=== PATIENT | male | born 1935 | race African-American/Black ===

== ENCOUNTER 2018-08-13 19:04 | Inpatient (IN) ==
[2018-08-13] MEDS ORDERED: Morphine Inj 4 MG/ML Vial IV.PUSH ONE (21:59)
[2018-08-13 23:16] LABS: Baso % (Auto) 0.4 % (0.0-2.0); Hematocrit 45.5 % (39.0-51.0); Hemoglobin 14.8 gm/dL (13.0-17.0); Lymph # (Auto) 0.8 th/mm3 (1.0-4.8); Lymph % (Auto) 7.5 % (9.0-44.0); Mean Corpuscular HGB Conc 32.6 % (32.0-36.0); Mean Corpuscular Hemoglobin 29.7 pg (27.0-34.0); Mean Platelet Volume 11.2 fL (7.0-11.0); Mono # (Auto) 0.6 th/mm3 (0.0-0.9); Mono % (Auto) 5.2 % (0.0-8.0); Neut # (Auto) 9.6 th/mm3 (1.8-7.7); Neut % (Auto) 86.9 % (16.0-70.0); Platelet Count 141 th/mm3 (150-450); Red Cell Distribution Width 14.1 % (11.6-17.2)
--- NOTE | 2018-08-13 23:17 | ED ---
HPI General Chief complaint: Extremity Problem,Nontraumatic Stated complaint: dr giuliana/hip/leg pain Time Seen by Provider: 08/13/18 21:32 Source: patient Mode of arrival: ambulatory Limitations: no limitations History of Present Illness HPI Narrative: 82-year-old male complains of weakness in the right leg. He is unable to elevate the heel off the bed. This is 24 hours old. He has had some numbness and tingling in the right leg as well as some low back pain for the past 2-1/2 weeks. [facility] does not know the results. The MRI was done 3 days ago. He reports that since then he has developed focal weakness. No fever. No history of steroid use or immunomodulators. Patient denies history of cancer. Patient does report a history of diabetes. No fecal incontinence or overflow urinary incontinence. No perineal or perianal anesthesia. Pt urinated at approximately 8pm this evening (approx 5 hours prior to admission). Pt reports small BM several hours prior in AM. MD Complaint: focal weakness Onset (ago): hour(s) (24) Duration: constant Location: RLE Migration: none Severity: mild Quality: numbness Relieving factors: none Exacerbating factors: none Associated symptoms: other (low back pain) Related Data Home Medications Medication Instructions Recorded Confirmed clopidogrel 75 mg PO DAILY 08/13/18 08/13/18 hydrochlorothiazide 12.5 mg PO BID 08/13/18 08/13/18 losartan 100 mg PO DAILY 08/13/18 08/13/18 metoprolol tartrate 12.5 mg PO BID 08/13/18 08/13/18 spironolactone 25 mg PO BID 08/13/18 08/13/18 Allergies Allergy/AdvReac Type Severity Reaction Status Date / Time No Known Allergies Allergy Unverified 08/13/18 19:37 Review of Systems ROS: all other systems reviewed are negative [facility] Medical History Medical History Diabetes (Acute) Hypertension (Acute) Surgical history unknown (Acute) Social History Social History Substance History: No History of Abuse Smoking Status: Never smoker How Often Do You Have a Drink Containing Alcohol: Never Recent Travel in [facility] within the Last 8 Weeks: No Recent Out of Country Travel within the Last 8 Weeks: No Immunization History Tetanus Immunization: Unsure Hx Influenza Vaccine This Season: Yes Exam Narrative Exam Narrative: GENERAL: 82-year-old male well-nourished well-developed SKIN: Focused skin assessment warm/dry. HEAD: Atraumatic. Normocephalic. EYES: Pupils equal and round. No scleral icterus. No injection or drainage. ENT: No nasal bleeding or discharge. Mucous membranes pink and moist. NECK: Trachea midline. No JVD. CARDIOVASCULAR: Regular rate and rhythm. No murmur appreciated. RESPIRATORY: No accessory muscle use. Clear to auscultation. Breath sounds equal bilaterally. GASTROINTESTINAL: Abdomen soft, non-tender, nondistended. Hepatic and splenic margins not palpable. MUSCULOSKELETAL: No focal TTP along midline spine. No paraspinal TTP. NEUROLOGICAL: Right hip flexion is limited against gravity. There is no active right hip flexion against active resistance. Flexion extension at the knee normal bilaterally. Ankle flexion extension normal and equal bilaterally. Great toe flexion/extension equal bilaterally. PSYCHIATRIC: Appropriate mood and affect; insight and judgment normal. Course Initial Documented Vital Signs Temperature 98.9 F 08/13/18 19:32 Pulse Rate 112 H 08/13/18 19:32 Respiratory Rate 18 08/13/18 19:32 Blood Pressure 159/102 H 08/13/18 19:32 Pulse Oximetry 98 08/13/18 19:32 Last Documented Vital Signs Temperature 98.9 F 08/13/18 19:32 Pulse Rate 112 H 08/13/18 19:32 Respiratory Rate 18 08/13/18 19:32 Blood Pressure 159/102 H 08/13/18 19:32 Pulse Oximetry 98 08/13/18 19:32 Medical Decision Making [facility] Narrative Medical decision making narrative: d/w Dr Sarkar of neurosurgery, requests for NPO for possible operative repair tomorrow morning. 2mg decadron given iv. No evidence epidural abscess on imaging. pt reports + urination approx 4 hours prior and small BM earlier in day. call placed to Dr Sylvester for [facility]. Medical Screen Exam Complete: Yes Emergency Medical Condition: Yes Differential Diagnosis Differential Diagnosis: epidural abscess, DJD, arthritis, fracture, stenosis Lab Data Lab results reviewed: Yes I reviewed the patient's lab results. Lab results narrative: LFTs normal Result diagrams: 08/13/18 20:40 08/13/18 20:40 Lab Results 08/13/18 08/13/18 Range/Units 20:40 20:40 WBC 11.0 (4.0-11.0) th/mm3 RBC 5.00 (4.50-5.90) mil/mm3 Hgb 14.8 (13.0-17.0) gm/dL Hct 45.5 (39.0-51.0) % MCV 91.0 (80.0-100.0) fL MCH 29.7 (27.0-34.0) pg MCHC 32.6 (32.0-36.0) % RDW 14.1 (11.6-17.2) % Plt Count 141 L (150-450) th/mm3 MPV 11.2 H (7.0-11.0) fL Neut % (Auto) 86.9 H (16.0-70.0) % Lymph % (Auto) 7.5 L (9.0-44.0) % [place] % (Auto) 5.2 (0.0-8.0) % Eos % (Auto) 0.0 (0.0-4.0) % Baso % (Auto) 0.4 (0.0-2.0) % Neut # (Auto) 9.6 H (1.8-7.7) th/mm3 Lymph # (Auto) 0.8 L (1.0-4.8) th/mm3 [place] # (Auto) 0.6 (0.0-0.9) th/mm3 Eos # (Auto) 0.0 (0.0-0.4) th/mm3 Baso # (Auto) 0.0 (0.0-0.2) th/mm3 WBC Differential . Differential Comment Auto diff final Sodium 141 (136-145) meq/L Potassium 4.5 (3.5-5.1) meq/L Chloride 104 (98-107) meq/L Carbon Dioxide 21.4 (21.0-32.0) meq/L Anion Gap 16 H (5-15) meq/L BUN 27 H (7-18) mg/dL Creatinine 2.22 H (0.60-1.30) mg/dL Estimated GFR 35 L (>89) mL/min Random Glucose 183 H (74-106) mg/dL Calcium 10.0 (8.5-10.1) mg/dL Total Bilirubin 0.7 (0.2-1.0) mg/dL AST 17 (15-37) U/L ALT 16 (12-78) U/L Alkaline Phosphatase 55 (45-117) U/L Total Protein 7.9 (6.4-8.2) g/dL Albumin 3.8 (3.4-5.0) g/dL Imaging Data Attestation: I personally reviewed and interpreted this imaging study as follows : Radiologist's impression: Lumbar Spine MRI 08/13/18 21:58 CONCLUSION: 1. 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 2. Please see above for detailed description of each level. Discharge Plan Discharge Disposition Patient Disposition: 30 Still Patient Physicians Team ED Provider: Steven Smart Primary Care Provider: UNKNOWN, Rxs /Orders / Referrals /Forms Prescriptions: No Action clopidogrel 75 mg Tablet 75 mg PO DAILY RF: 0 spironolactone 25 mg Tablet 25 mg PO BID RF: 0 hydrochlorothiazide 25 mg Tablet 12.5 mg PO BID RF: 0 losartan 100 mg Tablet 100 mg PO DAILY RF: 0 metoprolol tartrate 25 mg Tablet 12.5 mg PO BID RF: 0 Status ED Status: With Doctor
[2018-08-13 23:21] LABS: Albumin 3.8 g/dL (3.4-5.0); Anion Gap 16 meq/L (5-15); Aspartate Aminotransferase 17 U/L (15-37); Blood Urea Nitrogen 27 mg/dL (7-18); Carbon Dioxide 21.4 meq/L (21.0-32.0); Chloride 104 meq/L (98-107); Glomerular Filtration Rate 35 mL/min (>89); Glucose,Random 183 mg/dL (74-106); Potassium 4.5 meq/L (3.5-5.1); Sodium 141 meq/L (136-145)
[2018-08-13 23:22] LABS: Alanine Aminotransferase 16 U/L (12-78)
[2018-08-13 23:24] LABS: Alkaline Phosphatase 55 U/L (45-117); Total Protein 7.9 g/dL (6.4-8.2)
--- NOTE | 2018-08-14 00:22 | MR ---
EXAM DATE: 08/13/2018 9:58 PM EDT AGE/SEX: 82 years / Male INDICATIONS: Weakness. Right lower leg weakness for two months. CLINICAL DATA: This is the patient's subsequent encounter. Patient reports that signs and symptoms h ave been present for 2 months and indicates a pain score of 8/10. MEDICAL/SURGICAL HISTORY: Diabetes mellitus type I. Hypertension. . Rt flank sx, Scrotum sx. COMPARISON: No prior exams available for comparison. TECHNIQUE: Multiplanar, multisequence MRI of the lumbar spine was performed without contrast. Patie nt was scanned in a sitting position; neutral, flexion, and extension scans were performed in the sa gittal plane. FINDINGS: Vertebra: The most caudal-appearing lumbar vertebra is numbered as L5. Vertebral Body heights are in tact. Mild grade 1, less than 2 mm, anterolisthesis of L4 on L5. Mild less than 2 mm grade 1 retroli sthesis of L2 on L3. Homogeneous signal. Discs: Diffuse disc desiccation with mild disc space loss at L2-3, L3-4 and L4-5. Conus: Normal level and configuration. Paraspinal Soft Tissues: No significant focal renal abnormalities in the visualized kidneys. Visualiz ed aorta is non-aneurysmal. No Retroperitoneal adenopathy. T12-L1: Mild bilateral facet arthropathy. No significant central canal or neural foraminal stenosis. L1-L2: Mild diffuse disc bulge and bilateral facet arthropathy. No significant central canal or saul ral foraminal stenosis. L2-L3: Diffuse disc bulge, ligamentum flavum hypertrophy and mild left facet arthropathy. Mild sten osis of the central canal with central canal measuring 11 mm. [id number] left and moderate to s evere far lateral right neural foraminal stenosis. L3-L4: Diffuse disc bulge with bilateral facet arthropathy. Mild effacement anterior thecal sac. Mi ld to moderate left and moderate to severe right far lateral neural foraminal stenosis. L4-L5: Diffuse disc bulge, ligamentum flavum hypertrophy and bilateral facet arthropathy. Mild to m oderate left and moderate severe right far lateral neural foraminal stenosis. L5-S1: Mild diffuse disc bulge and mild to moderate left facet arthropathy. Mild effacement of the anterior thecal sac. Mild bilateral neural foraminal stenosis. CONCLUSION: 1. 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 2. Please see above for detailed description of each level. Electronically signed by: Madhav Hill MD 08/14/2018 12:21 AM EDT
[2018-08-14] MEDS ORDERED: Bisacodyl 10 MG Supp RECTAL PRN (01:13)
[2018-08-14] MEDS ORDERED: Acetaminophen 325 MG Tablet PO PRN (01:13)
[2018-08-14] MEDS ORDERED: Dextrose 50% in Water 50 ML Vial IV.PUSH PRN (01:18)
--- NOTE | 2018-08-14 01:53 | P.HP ---
History of Present Illness Service: [facility] Primary Care Physician: UNKNOWN History of Present Illness: 82-year-old male with a past medical history significant for diabetes mellitus, hypertension, hyperlipidemia and BPH presents the emergency department for the evaluation of right hip pain and right lower extremity weakness. The patient reports that for approximately 3-1/2 weeks he has had right hip pain that has consistently worsened. He reports he has had increasing right lower extremity weakness to the point where he can no longer lift his leg off the bed times 1 week. He was advised by 1 of his physicians at the OR to come to the emergency department for further evaluation. He denies any chest pain or shortness of breath. No abdominal pain. No nausea/vomiting/diarrhea. Positive constipation. No fever/chills. No loss of bowel or bladder continence. Inpatient Certification: I certify that the inpatient services were ordered in accordance with Medicare regulations governing the order. This includes certification that hospital inpatient services are reasonable and necessary and in the case of services not specified as inpatient-only under 42 CFR 419.22(n), that they are appropriately provided as inpatient services in accordance to with the 2-midnight benchmark under 43 CFR 412.3(e) Estimated Total Length of Stay (Days): 5 Plans for Post Hospital Care: Not yet determined Review of Systems All other systems reviewed negative except as stated in [facility]PI [facility] - History History Provided By: Patient - Medical History Medical History: Medical History (Last Updated 08/14/18 @ 01:41 by Mira Sylvester MD) BPH (benign prostatic hyperplasia) Diabetes History of scrotal mass Hyperlipidemia Hypertension Surgical history unknown - Family History Family History: Family History (Last Updated 08/14/18 @ 01:41 by Mira Sylvester MD) Other Family history normal - Tobacco History Smoking Status: Never smoker - Alcohol History How Often Do You Have a Drink Containing Alcohol: Never - Substance Use History Substance History: No History of Abuse - Travel History Recent Travel in the [place] Within the Last 8 Weeks: No Recent Travel Out of the Country Within the Last 8 Weeks: No - Immunization History Tetanus Immunization: Unsure Hx Influenza Vaccine This Season: Yes Medications and Allergies Active Medications: Active Medications Acetaminophen (Tylenol) 650 mg PO Q4H PRN PRN Reason: Temp > 100.4 Bisacodyl (Dulcolax Supp) 10 mg RECTAL DAILY PRN PRN Reason: SEVERE CONSITIPATION Dextrose (D50w Vial) 50 ml IV.PUSH UNSCH PRN PRN Reason: PER HYPOGLYCEMIA PROTOCOL Glucagon (Glucagon Inj) 1 mg OTHER PRN PRN PRN Reason: for Hypoglycemia Protocol Sodium Chloride (Ns Inj) 1,000 mls @ 100 mls/hr IV.CONT .Q10H [facility] Insulin Aspart (Novolog Insulin Correctional Sugar Inj) 0 unit SQ ACHS [facility]; Protocol Losartan Potassium (Cozaar) 100 mg PO DAILY [facility] Metoprolol Tartrate (Lopressor) 12.5 mg PO BID [facility] Ondansetron HCl (Zofran Inj) 4 mg IV.PUSH Q6H PRN PRN Reason: NAUSEA OR VOMITING Sennosides (Senokot) 17.2 mg PO Q12H PRN PRN Reason: Moderate Constipation Sodium Chloride (Ns Flush) 2 ml IV.FLUSH PRN PRN PRN Reason: FLUSH AFTER USING IV ACCESS Spironolactone (Aldactone) 25 mg PO BID [facility] Allergies Allergy/AdvReac Type Severity Reaction Status Date / Time No Known Allergies Allergy Unverified 08/13/18 19:37 Home Medications Medication Instructions Recorded Confirmed Type clopidogrel 75 mg PO DAILY 08/13/18 08/13/18 History hydrochlorothiazide 12.5 mg PO BID 08/13/18 08/13/18 History losartan 100 mg PO DAILY 08/13/18 08/13/18 History metoprolol tartrate 12.5 mg PO BID 08/13/18 08/13/18 History spironolactone 25 mg PO BID 08/13/18 08/13/18 History Exam Vital signs: Vital Signs 08/13/18 19:32 Temperature 98.9 F Pulse Rate 112 H Respiratory Rate 18 Blood Pressure 159/102 H Pulse Oximetry 98 Narrative: Gen.: No acute distress Head: Normocephalic. Atraumatic. EENT: Pupils equal round and reactive to light. Nose without drainage. Airway intact. Throat without injection. Cardiovascular: Regular rate and rhythm. No murmurs, rubs or gallops. Respiratory: Lungs clear to auscultation bilaterally. No wheezes or rhonchi. Abdomen: Soft, nontender, nondistended. No peritoneal signs. Musculoskeletal: No gross deformities. No edema. Skin: No obvious rashes or erythema. Neuro: Cranial nerves II through XII grossly intact. Unable to raise right lower extremity off the bed. Results - Labs CBC & Chem 7: 08/13/18 20:40 08/13/18 20:40 Labs: Laboratory Results - last 24 hr 08/13/18 08/13/18 20:40 20:40 WBC 11.0 RBC 5.00 Hgb 14.8 Hct 45.5 MCV 91.0 MCH 29.7 MCHC 32.6 RDW 14.1 Plt Count 141 L MPV 11.2 H Neut % (Auto) 86.9 H Lymph % (Auto) 7.5 L [place] % (Auto) 5.2 Eos % (Auto) 0.0 Baso % (Auto) 0.4 Neut # (Auto) 9.6 H Lymph # (Auto) 0.8 L [place] # (Auto) 0.6 Eos # (Auto) 0.0 Baso # (Auto) 0.0 WBC Differential . Differential Comment Auto diff final Sodium 141 Potassium 4.5 Chloride 104 Carbon Dioxide 21.4 Anion Gap 16 H BUN 27 H Creatinine 2.22 H Estimated GFR 35 L Random Glucose 183 H Calcium 10.0 Total Bilirubin 0.7 AST 17 ALT 16 Alkaline Phosphatase 55 Total Protein 7.9 Albumin 3.8 - Imaging Impressions Lumbar Spine MRI 08/13/18 21:58 CONCLUSION: 1. 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 2. Please see above for detailed description of each level. Caprini VTE Risk Assessment Caprini VTE Risk Assessment: Moderate/High Risk (score >= 2) Caprini Risk Assessment Model: Point Value = 1 Point Value = 2 Point Value = 3 Point Value = 5 Age 41-60 Minor surgery BMI > 25 kg/m2 Swollen legs Varicose veins or History of unexplained or recurrent spontaneous Oral contraceptives or hormone replacement Sepsis (< 1 month) Serious lung disease, including pneumonia (< 1 month) Abnormal pulmonary function Acute myocardial infarction Congestive heart failure (< 1 month) History of inflammatory bowel disease Medical patient at bed rest Age 61-74 Arthroscopic surgery Major open surgery (> 45 min) Laparoscopic surgery (> 45 min) Malignancy Confined to bed (> 72 hours) Immobilizing plaster cast Central venous access Age >= 75 History of VTE Family history of VTE Factor V Leiden Prothrombin 31111M Lupus anticoagulant Anticardiolipin antibodies Elevated serum homocysteine Heparin-induced thrombocytopenia Other congenital or acquired thrombophilia Stroke (< 1 month) Elective arthroplasty Hip, pelvis, or leg fracture Acute spinal cord injury (< 1 month) Prophylaxis Regimen: Total Risk Factor Score Risk Level Prophylaxis Regimen 0-1 Low Early ambulation 2 Moderate Order ONE of the following: *Sequential Compression Device (SCD) *Heparin 5000 units SQ BID 3-4 Higher Order ONE of the following medications: *Heparin 5000 units SQ TID *Enoxaparin/Lovenox 40 mg SQ daily (WT < 150 kg, CrCl > 30 mL/min) *Enoxaparin/Lovenox 30 mg SQ daily (WT < 150 kg, CrCl > 10-29 mL/min) *Enoxaparin/Lovenox 30 mg SQ BID (WT < 150 kg, CrCl > 30 mL/min) AND/OR *Sequential Compression Device (SCD) 5 or more Highest Order ONE of the following medications: *Heparin 5000 units SQ TID (Preferred with Epidurals) *Enoxaparin/Lovenox 40 mg SQ daily (WT < 150 kg, CrCl > 30 mL/min) *Enoxaparin/Lovenox 30 mg SQ daily (WT < 150 kg, CrCl > 10-29 mL/min) *Enoxaparin/Lovenox 30 mg SQ BID (WT < 150 kg, CrCl > 30 mL/min) AND *Sequential Compression Device (SCD) Assessment and Plan - Plan Assessment/plan: 1. Right hip pain/weakness MRI of the lumbar spine significant for multilevel degenerative spondylosis of the lumbar spine with moderate to severe right lateral foraminal narrowing secondary to disc bulge Decadron Neurosurgery consulted, appreciate assistance 2. Diabetes mellitus Sliding scale insulin Monitor blood glucose 3. Acute kidney injury At mean 2.22, baseline unknown Likely chronic component Monitor renal function Holding home hydrochlorothiazide IV fluid hydration 4. Hypertension Continue home medications FEN NPO Electrolytes: Monitor and replete as needed NS at 100 cc/hour Holding pharmacologic anticoagulation for possible operative intervention
[2018-08-14] MEDS: Sod Chloride 0.9% Inj 1,000 ML IV.CONT SCH ×3 (02:00→23:00)
[2018-08-14] MEDS ORDERED: Chlorhexidine Gluconate 2% 1 Pack (2 Cloths) TOPICAL ONE (04:21)
[2018-08-14] MEDS ORDERED: Sodium Chlor 0.9% Inj 500 ML IV.SIG SCH (05:00)
--- NOTE | 2018-08-14 05:22 | P.CONNS ---
History of Present Illness Service: Medicine Consult date: 08/14/18 Primary Care Provider: UNKNOWN Chief Complaint: R leg weakness History of Present Illness: 82yoM former diabetic (resolved after weight loss) has had insidious onset of proximal right leg weakness over the past three weeks. He no longer feels confident walking without a walker or crutches. This involves only the right thigh (difficulty "lifting his leg") but not more distally. No significant numbness. Endorses pain in the right lateral flank but not in the back. Does not have a positive straight leg raise. MRI read as significant right L2/3 far lateral disc herniation. No clear etiology for pain (no inciting incident). 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 [facility] - History History Provided By: Patient - Medical History Medical History: Medical History (Last Updated 08/14/18 @ 01:41 by Mira Sylvester MD) BPH (benign prostatic hyperplasia) Diabetes History of scrotal mass Hyperlipidemia Hypertension Surgical history unknown - Family History Family History: Family History (Last Updated 08/14/18 @ 01:41 by Mira Sylvester MD) Other Family history normal - Tobacco History Second Hand Smoke Exposure: No Smoking Status: Never smoker - Alcohol History How Often Do You Have a Drink Containing Alcohol: Never - Substance Use History Substance History: No History of Abuse - Travel History Recent Travel in the [place] Within the Last 8 Weeks: No Recent Travel Out of the Country Within the Last 8 Weeks: No - Immunization History Tetanus Immunization: Unsure Hx Influenza Vaccine This Season: No Medications and Allergies Active Medications: Active Medications Acetaminophen (Tylenol) 650 mg PO Q4H PRN PRN Reason: Temp > 100.4 Bisacodyl (Dulcolax Supp) 10 mg RECTAL DAILY PRN PRN Reason: SEVERE CONSITIPATION Dexamethasone Sodium Phosphate (Decadron Inj) 4 mg IV.PUSH Q6HR [facility] Last Admin: 08/14/18 01:59 Dose: Not Given Dextrose (D50w Vial) 50 ml IV.PUSH UNSCH PRN PRN Reason: PER HYPOGLYCEMIA PROTOCOL Glucagon (Glucagon Inj) 1 mg OTHER PRN PRN PRN Reason: for Hypoglycemia Protocol Sodium Chloride (Ns Inj) 1,000 mls @ 100 mls/hr IV.CONT .Q10H [facility] Last Admin: 08/14/18 02:00 Dose: 100 mls/hr Lactated Ringer's (Lr 1000 Ml Inj) 1,000 mls @ 30 mls/hr IV.SIG .Q24H [facility] Stop: 08/15/18 04:29 Sodium Chloride (Ns Inj) 500 mls @ 30 mls/hr IV.SIG .Q10H [facility] Insulin Aspart (Novolog Insulin Correctional Sugar Inj) 0 unit SQ ACHS [facility]; Protocol Losartan Potassium (Cozaar) 100 mg PO DAILY [facility] Metoprolol Tartrate (Lopressor) 12.5 mg PO BID [facility] Ondansetron HCl (Zofran Inj) 4 mg IV.PUSH Q6H PRN PRN Reason: NAUSEA OR VOMITING Sennosides (Senokot) 17.2 mg PO Q12H PRN PRN Reason: Moderate Constipation Sodium Chloride (Ns Flush) 2 ml IV.FLUSH PRN PRN PRN Reason: FLUSH AFTER USING IV ACCESS Spironolactone (Aldactone) 25 mg PO BID [facility] Allergies Allergy/AdvReac Type Severity Reaction Status Date / Time No Known Allergies Allergy Unverified 08/13/18 19:37 Home Medications Medication Instructions Recorded Confirmed Type clopidogrel 75 mg PO DAILY 08/13/18 08/13/18 History hydrochlorothiazide 12.5 mg PO BID 08/13/18 08/13/18 History losartan 100 mg PO DAILY 08/13/18 08/13/18 History metoprolol tartrate 12.5 mg PO BID 08/13/18 08/13/18 History spironolactone 25 mg PO BID 08/13/18 08/13/18 History Exam Vital signs: Vital Signs 08/13/18 19:32 08/14/18 01:54 08/14/18 03:23 Temperature 98.9 F 97.7 F Pulse Rate 112 H 67 87 Respiratory Rate 18 18 18 Blood Pressure 159/102 H 176/81 H 140/79 Pulse Oximetry 98 98 100 Narrative: A&O x 3 CN II-XII intact Motor 5/5 UE and LLE. RLE: ip 2, quads 4, remainder 5 (hamstrings, and sciatic-TA/gas/EHL) Intact sensation throughout Able to bear weight with walker Negative straight leg raise to 90 degrees Results - Laboratory Findings CBC and BMP: 08/13/18 20:40 08/13/18 20:40 Abnormal lab findings: Abnormal Labs 08/13/18 08/13/18 20:40 20:40 Plt Count 141 L MPV 11.2 H Neut % (Auto) 86.9 H Lymph % (Auto) 7.5 L Neut # (Auto) 9.6 H Lymph # (Auto) 0.8 L Anion Gap 16 H BUN 27 H Creatinine 2.22 H Estimated GFR 35 L Random Glucose 183 H Assessment and Plan - Plan 82yoM with 3 week onset of insidious proximal right leg weakness without numbness, some right lateral flank pain moreso than back pain, negative Straight leg raise, acute kidney injury (Cr 2.2 without previous history), history of DM (but reduced weight from 250 to 170 lbs and an on no meds currently). The patient is not presenting like a classic far lateral disc herniation. He has no real back pain, negative SLR, is not uncomfortable. Differential includes right femoral neuropathy (would recommend EMG/NCS at 3-4 weeks after sx onset). Can occur in diabetics (diabetic amyotrophy, but usually uncontrolled). He is on *plavix* for ?reason. If contrast allowed with REKHA, consider MRI L-spine with contrast. If further imaging planned for REKHA, consider CT abdomen/pelvis. Follow-up outpatient in [facility] in 2 weeks with EMG/NCS of right leg (eval L2/L3 roots vs. femoral nerve, patient on plavix). PT to assess weakness and need for assistive devices vs. leg brace. Lastly, consider hip evaluation.
[2018-08-14 07:54] LABS: Bilirubin,Urine Negative (Negative); Clarity,Urine Clear (Clear); Color,Urine Yellow (Yellw/Straw); Glucose,Urine (UA) 500 or Greater mg/dL (Negative); Leukocyte Esterase,Urine Negative (Negative); Mucus,Urine Few /lpf (Occasional); Nitrite,Urine Negative (Negative); Specific Gravity,Urine 1.011 (1.002-1.035); Squamous Epithelial Cell,Urine <1 /hpf (0-5)
[2018-08-14 07:57] LABS: Bacteria,Urine Rare /hpf
[2018-08-14] MEDS: Insulin NovoLOG Aspart Correctional Sugar Inj SQ SCH ×4 (08:30→20:33)
[2018-08-14] MEDS: Spironolactone 25 MG Tablet PO SCH ×2 (08:30→20:33)
[2018-08-14] MEDS: Metoprolol Tartrate 25 MG Tablet PO SCH ×2 (08:31→20:33)
--- NOTE | 2018-08-14 11:26 | XR ---
EXAM DATE: 08/14/2018 12:00 AM EDT AGE/SEX: 82 years / Male INDICATIONS: Right hip pain, no known trauma CLINICAL DATA: This is the patient's initial encounter. Patient reports that signs and symptoms have been present for 2 weeks and indicates a pain score of 8/10. MEDICAL/SURGICAL HISTORY: None. None. COMPARISON: No prior exams available for comparison. FINDINGS: Bony structures are intact and in normal alignment. Joints are intact without dislocation or signifi cant arthropathy. There is minimal sclerosis of the acetabulum. Osseous density is normal. Soft tiss ues are unremarkable. No radiopaque foreign bodies seen. CONCLUSION: Minimal degenerative change. Electronically signed by: Calos Ozuna MD 08/14/2018 11:24 AM EDT
--- NOTE | 2018-08-14 12:11 | P.PN ---
Subjective Interval history: Right lower extremity weakness without any numbness August 14, 2018-patient seen and examined, only complaints of right was 20 weakness denies any significant pain or numbness. No acute event overnight. Physical Exam Vital signs: Vital Signs 08/13/18 19:32 08/14/18 01:54 08/14/18 03:23 Temperature 98.9 F 97.7 F Pulse Rate 112 H 67 87 Respiratory Rate 18 18 18 Blood Pressure 159/102 H 176/81 H 140/79 Pulse Oximetry 98 98 100 08/14/18 08:00 08/14/18 09:08 Temperature 98.6 F Pulse Rate 84 57 L Respiratory Rate 18 Blood Pressure 154/78 H Pulse Oximetry 98 Intake & Output 08/13/18 08/14/18 08/14/18 18:59 06:59 18:59 Output Total 1150 / 1150 Balance -1150 / -1150 Output: Urine 1150 / 1150 Narrative: GENERAL: NAD SKIN: Warm and dry. HEAD: Atraumatic. Normocephalic. EYES: Pupils equal and round. No scleral icterus. No injection or drainage. ENT: No nasal bleeding or discharge. Mucous membranes pink and moist. NECK: Trachea midline. No JVD. CARDIOVASCULAR: Regular rate and rhythm. RESPIRATORY: No accessory muscle use. Clear to auscultation. Breath sounds equal bilaterally. GASTROINTESTINAL: Abdomen soft, non-tender, nondistended. Hepatic and splenic margins not palpable. MUSCULOSKELETAL: Extremities without clubbing, cyanosis, or edema. No obvious deformities. NEUROLOGICAL: Awake and alert. No obvious cranial nerve deficits. Motor grossly within normal limits. Four out of 5 muscle strength in the right leg PSYCHIATRIC: Appropriate mood and affect; insight and judgment normal. - Urinary Catheter Management Indwelling Urethral Catheter Cath placed during this visit: yes Reason for continuing: Acute urinary retention Insertion date: 08/14/18 Insertion time: 07:02 Results - Labs CBC & Chem 7: 08/13/18 20:40 08/13/18 20:40 Laboratory Results - last 24 hr 08/13/18 08/13/18 08/14/18 20:40 20:40 07:00 WBC 11.0 RBC 5.00 Hgb 14.8 Hct 45.5 MCV 91.0 MCH 29.7 MCHC 32.6 RDW 14.1 Plt Count 141 L MPV 11.2 H Neut % (Auto) 86.9 H Lymph % (Auto) 7.5 L [place] % (Auto) 5.2 Eos % (Auto) 0.0 Baso % (Auto) 0.4 Neut # (Auto) 9.6 H Lymph # (Auto) 0.8 L [place] # (Auto) 0.6 Eos # (Auto) 0.0 Baso # (Auto) 0.0 WBC Differential . Differential Comment Auto diff final Sodium 141 Potassium 4.5 Chloride 104 Carbon Dioxide 21.4 Anion Gap 16 H BUN 27 H Creatinine 2.22 H Estimated GFR 35 L POC Glucose Random Glucose 183 H Calcium 10.0 Total Bilirubin 0.7 AST 17 ALT 16 Alkaline Phosphatase 55 Total Protein 7.9 Albumin 3.8 Urine Color Yellow Urine Clarity Clear Urine pH 5.0 Ur Specific [place] 1.011 Urine Protein 30 H Urine Glucose (UA) 500 or greater Urine Ketones 20 Urine Occult Blood Large H Urine Nitrate Negative Urine Bilirubin Negative Urine Urobilinogen Less than 2 Ur Leukocyte Esterase Negative Urine RBC 96 H Urine WBC 1 Ur Squamous Epith Cells <1 Urine Bacteria Rare H Urine Mucus Few H Micro UA Comment Culture not ind Ur Microscopic Review Not Reportable Urine Culture Comments Culture not ind 08/14/18 07:11 WBC RBC Hgb Hct MCV MCH MCHC RDW Plt Count MPV Neut % (Auto) Lymph % (Auto) [place] % (Auto) Eos % (Auto) Baso % (Auto) Neut # (Auto) Lymph # (Auto) [place] # (Auto) Eos # (Auto) Baso # (Auto) WBC Differential Differential Comment Sodium Potassium Chloride Carbon Dioxide Anion Gap BUN Creatinine Estimated GFR POC Glucose 188 H Random Glucose Calcium Total Bilirubin AST ALT Alkaline Phosphatase Total Protein Albumin Urine Color Urine Clarity Urine pH Ur Specific [place] Urine Protein Urine Glucose (UA) Urine Ketones Urine Occult Blood Urine Nitrate Urine Bilirubin Urine Urobilinogen Ur Leukocyte Esterase Urine RBC Urine WBC Ur Squamous Epith Cells Urine Bacteria Urine Mucus Micro UA Comment Ur Microscopic Review Urine Culture Comments - Imaging Impressions Lumbar Spine MRI 08/13/18 21:58 CONCLUSION: 1. 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 2. Please see above for detailed description of each level. Hip X-Ray 08/14/18 00:00 CONCLUSION: Minimal degenerative change. Assessment and Plan - Assessment (1) Weakness of right lower extremity Code(s): R29.898 - Other symptoms and signs involving the musculoskeletal system Status: Acute - Plan 82-year-old man with 1. Right hip pain/weakness MRI of the lumbar spine significant for multilevel degenerative spondylosis of the lumbar spine with moderate to severe right lateral foraminal narrowing secondary to disc bulge Currently on Decadron Neurosurgery consulted, appreciate assistance PT to treat and eval 2. Diabetes mellitus Sliding scale insulin Monitor blood glucose 3. Acute kidney injury Likely chronic component Monitor renal function Holding home hydrochlorothiazide Continue with IV fluid hydration 4. Hypertension Continue home medications
--- NOTE | 2018-08-14 18:19 | MB ---
cc: Mauricio Sandhu DO DATE: 08/14/2018 DATE OF CONSULTATION: 08/14/2018. HISTORY OF PRESENT ILLNESS: Mr. Elizabeth is an 82-year-old male who presented with a history of right-sided hip pain and today, went on to develop urinary retention. A Lawrence catheter was placed with some difficulty and 1200 mL of clear yellow urine drained. The patient does have a history of BPH, but denies being in retention before. There is a family history of prostate cancer on his brother's side. He denies any infections, gross hematuria, or stones. PAST MEDICAL HISTORY: Includes diabetes, hyperlipidemia, BPH, right hip pain. PAST SURGICAL HISTORY: None noted. FAMILY HISTORY: Brother with prostate cancer. SOCIAL HISTORY: Denies smoking, drinking, or using drugs. REVIEW OF SYSTEMS: Right hip pain, nocturia, moderate stream, no gross hematuria. Denies chest pain, shortness of breath. Denies abdominal pain. Denies headaches. Does have gait disturbances. Remaining review of systems were reviewed and were negative. PHYSICAL EXAMINATION: VITAL SIGNS: Temperature 98.6, heart rate 79, respiratory rate 18, 130/80. GENERAL: Well-developed, well-nourished, 82-year-old male, in no acute distress. HEENT: Normocephalic, atraumatic. Pupils equal, round, regular and reactive to light. Extraocular movements intact. NECK: Supple. HEART: Regular rate and rhythm. LUNGS: Clear. ABDOMEN: Soft, nontender, nondistended. GENITOURINARY: Uncircumcised phallus. Testes are descended. Lawrence catheter is in place, draining clear urine. EXTREMITIES: Show no cyanosis, clubbing, or edema. NEUROLOGIC: Cranial nerves 2-12 are intact. LABORATORY DATA: White count 11.0, hemoglobin 14.8, hematocrit 45.5, platelet count 141. Sodium 141, potassium 4.5, chloride 104, CO2 21.4, BUN of 27, creatinine 2.2, glucose of 188. Urinalysis shows large blood, leukocyte esterase is negative, less than 1 white cell and 96 red cells. ASSESSMENT: 1. An 82-year-old male admitted with right-sided hip pain with difficulty ambulating, was found to be in urinary retention, with history of benign prostatic hypertrophy. Recommend starting Flomax 0.4 mg p.o. at bedtime. 2. Treat constipation. 3. Wean narcotics as appropriate. 4. PT evaluation for ambulation. PLAN: Would recommend voiding trial in the next 3-4 days. The patient is discharged for this. He can follow up in the clinic, but will need to be discharged on Flomax 0.4 mg p.o. at bedtime. Thank you for the consult and allowing us to participate in the care of your patient. DO TRAVIS Colvin/marisol , 04:50 PM , 04:59 PM
[2018-08-15 04:52] LABS: Baso % (Auto) 0.2 % (0.0-2.0); Hematocrit 36.8 % (39.0-51.0); Hemoglobin 12.4 gm/dL (13.0-17.0); Lymph # (Auto) 0.7 th/mm3 (1.0-4.8); Lymph % (Auto) 6.7 % (9.0-44.0); Mean Corpuscular HGB Conc 33.7 % (32.0-36.0); Mean Corpuscular Hemoglobin 30.1 pg (27.0-34.0); Mean Corpuscular Volume 89.2 fL (80.0-100.0); Mono # (Auto) 0.5 th/mm3 (0.0-0.9); Mono % (Auto) 4.7 % (0.0-8.0); Neut # (Auto) 8.8 th/mm3 (1.8-7.7); Neut % (Auto) 88.4 % (16.0-70.0); Platelet Count 128 th/mm3 (150-450); Red Blood Count 4.12 mil/mm3 (4.50-5.90); White Blood Count 9.9 th/mm3 (4.0-11.0)
[2018-08-15 05:19] LABS: Calcium 8.5 mg/dL (8.5-10.1); Carbon Dioxide 25.2 meq/L (21.0-32.0); Potassium 4.7 meq/L (3.5-5.1)
[2018-08-15] MEDS: Insulin NovoLOG Aspart Correctional Sugar Inj SQ SCH ×4 (08:00→20:49)
--- NOTE | 2018-08-15 08:13 | P.CONOP ---
[facility] Orthopedics Consult Note - [facility] Consult date: 08/14/18 Consult reason: other (right leg weakness) Chief complaint: R Leg Weakness Narrative: 82 year old male here for evaluation of right leg weakness and lateral hip pain which began about 3 weeks ago. He denies any trauma or inciting event. He states he is unable to lift his leg straight of the bed on the right side and has started to need assistive devices to walk. He locates his pain to the lateral hip and flank. Denies any groin pain. He does not have pain radiating down the leg or numbness. No history of prior injury or issues with this leg. Review of Systems All other systems reviewed negative except as stated in HPI Musculoskeletal: Reports abnormal walking, Reports joint pain, Reports muscle weakness, Denies back pain PMFSH - History History Provided By: Patient - Medical History Medical History: Medical History (Last Reviewed 08/15/18 @ 08:06 by Emilee Isaacs MD) BPH (benign prostatic hyperplasia) Diabetes History of scrotal mass Hyperlipidemia Hypertension Surgical history unknown - Family History Family History: Family History (Last Reviewed 08/15/18 @ 08:06 by Emilee Isaacs MD) Other Family history normal - Tobacco History Second Hand Smoke Exposure: No Smoking Status: Never smoker - Alcohol History How Often Do You Have a Drink Containing Alcohol: Never - Substance Use History Substance History: No History of Abuse - Travel History Recent Travel in the [place] Within the Last 8 Weeks: No Recent Travel Out of the Country Within the Last 8 Weeks: No - Immunization History Tetanus Immunization: Unsure Hx Influenza Vaccine This Season: No Medications and Allergies Active Medications: Active Medications Acetaminophen (Tylenol) 650 mg PO Q4H PRN PRN Reason: Temp > 100.4 Bisacodyl (Dulcolax Supp) 10 mg RECTAL DAILY PRN PRN Reason: SEVERE CONSITIPATION Dexamethasone Sodium Phosphate (Decadron Inj) 4 mg IV.PUSH Q6HR [facility] Last Admin: 08/15/18 05:07 Dose: 4 mg Dextrose (D50w Vial) 50 ml IV.PUSH UNSCH PRN PRN Reason: PER HYPOGLYCEMIA PROTOCOL Glucagon (Glucagon Inj) 1 mg OTHER PRN PRN PRN Reason: for Hypoglycemia Protocol Sodium Chloride (Ns Inj) 1,000 mls @ 100 mls/hr IV.CONT .Q10H [facility] Last Admin: 08/14/18 23:00 Dose: 100 mls/hr Sodium Chloride (Ns Inj) 500 mls @ 30 mls/hr IV.SIG .Q10H [facility] Last Admin: 08/14/18 07:39 Dose: Not Given Insulin Aspart (Novolog Insulin Correctional Sugar Inj) 0 unit SQ ACHS [facility]; Protocol Last Admin: 08/14/18 20:33 Dose: 3 unit Losartan Potassium (Cozaar) 100 mg PO DAILY [facility] Last Admin: 08/14/18 08:31 Dose: 100 mg Metoprolol Tartrate (Lopressor) 12.5 mg PO BID [facility] Last Admin: 08/14/18 20:33 Dose: 12.5 mg Ondansetron HCl (Zofran Inj) 4 mg IV.PUSH Q6H PRN PRN Reason: NAUSEA OR VOMITING Sennosides (Senokot) 17.2 mg PO Q12H PRN PRN Reason: Moderate Constipation Sodium Chloride (Ns Flush) 2 ml IV.FLUSH PRN PRN PRN Reason: FLUSH AFTER USING IV ACCESS Spironolactone (Aldactone) 25 mg PO BID [facility] Last Admin: 08/14/18 20:33 Dose: 25 mg Tamsulosin HCl (Flomax) 0.4 mg PO DAILY [facility] Last Admin: 08/14/18 17:20 Dose: 0.4 mg Allergies Allergy/AdvReac Type Severity Reaction Status Date / Time No Known Allergies Allergy Unverified 08/13/18 19:37 Home Medications Medication Instructions Recorded Confirmed Type clopidogrel 75 mg PO DAILY 08/13/18 08/13/18 History hydrochlorothiazide 12.5 mg PO BID 08/13/18 08/13/18 History losartan 100 mg PO DAILY 08/13/18 08/13/18 History metoprolol tartrate 12.5 mg PO BID 08/13/18 08/13/18 History spironolactone 25 mg PO BID 08/13/18 08/13/18 History metformin 1,000 mg PO BID 08/14/18 08/14/18 History Exam Vital signs: Vital Signs 08/14/18 09:08 08/14/18 12:00 08/14/18 16:00 Temperature 97.4 F L Pulse Rate 57 L 79 93 H Respiratory Rate 18 18 Blood Pressure 138/80 146/69 H Pulse Oximetry 97 93 L 08/14/18 20:00 08/15/18 00:00 08/15/18 04:00 Temperature 98.9 F 98.5 F 98.1 F Pulse Rate 74 68 52 L Respiratory Rate 17 17 17 Blood Pressure 142/65 H 129/69 144/69 H Pulse Oximetry 98 97 96 Intake & Output 08/14/18 08/15/18 08/15/18 18:59 06:59 18:59 Intake Total 1150 / 1150 1000 / 1000 Output Total 2049 1750 / 175 Balance -900 / -900 -750 / -750 Intake: IV 500 / 500 1000 / 1000 NS Inj 1,000 ML @ 100 mls/hr IV 500 / 500 1000 / 1000 .CONT .Q10H [facility] Rx#:[id number] Oral 650 / 650 Output: Urine 2049 - Constitutional no acute distress - Routine HEENT Exam Head: Present: normocephalic, atraumatic - Routine Neck Exam Present: supple - Routine Cardiovascular Exam Present: RRR - Routine Extremities Exam Comments: Right lower extremity exam shows a non irritable hip with negative log roll and normal nonpainful range of motion. He is not point tender. He does appear to have some quadriceps atrophy compared to the right. Muscle strength testing shows 2/5 iliopsoas and 4/5 quadriceps strength with 5/5 strength distally. Negative straight leg raise and normal sensation. Palpable DP pulse. Results - Labs Result Diagrams: 08/15/18 04:03 08/15/18 04:03 Labs: Laboratory Results - last 24 hr 08/14/18 08/14/18 08/14/18 12:12 16:59 20:30 WBC RBC Hgb Hct MCV MCH MCHC RDW Plt Count MPV Neut % (Auto) Lymph % (Auto) [place] % (Auto) Eos % (Auto) Baso % (Auto) Neut # (Auto) Lymph # (Auto) [place] # (Auto) Eos # (Auto) Baso # (Auto) WBC Differential Differential Comment Sodium Potassium Chloride Carbon Dioxide Anion Gap BUN Creatinine Estimated GFR POC Glucose 158 H 215 H 227 H Random Glucose Calcium 08/15/18 08/15/18 04:03 04:03 WBC 9.9 RBC 4.12 L Hgb 12.4 L D Hct 36.8 L MCV 89.2 MCH 30.1 MCHC 33.7 RDW 14.0 Plt Count 128 L MPV 11.0 Neut % (Auto) 88.4 H Lymph % (Auto) 6.7 L [place] % (Auto) 4.7 Eos % (Auto) 0.0 Baso % (Auto) 0.2 Neut # (Auto) 8.8 H Lymph # (Auto) 0.7 L [place] # (Auto) 0.5 Eos # (Auto) 0.0 Baso # (Auto) 0.0 WBC Differential . Differential Comment Auto diff final Sodium 144 Potassium 4.7 Chloride 109 H Carbon Dioxide 25.2 Anion Gap 10 BUN 34 H Creatinine 1.77 H Estimated GFR 45 L POC Glucose Random Glucose 168 H Calcium 8.5 D - Diagnostic results Imaging: Impressions Hip X-Ray 08/14/18 00:00 CONCLUSION: Minimal degenerative change. Hip x-ray: report reviewed, image reviewed (No acute findings) Assessment and Plan - Problem List (1) Weakness of right lower extremity Code(s): R29.898 - Other symptoms and signs involving the musculoskeletal system Status: Acute - Assessment and Plan 82 year old male with progressive right leg weakness primarily involving the hip flexors and less so his quadriceps. His hip joint itself examines normally. He does have some known degenerative changes and compression in the lumbar spine which may be contributing to this, and has been seen by neurosurgery already. I do not think I have anything additional to offer at this time. I agree with physical therapy for gait evaluation.
[2018-08-15] MEDS: Spironolactone 25 MG Tablet PO SCH ×2 (08:35→20:49)
[2018-08-15] MEDS: Metoprolol Tartrate 25 MG Tablet PO SCH ×2 (08:35→20:49)
[2018-08-15] MEDS: Sod Chloride 0.9% Inj 1,000 ML IV.CONT SCH ×2 (08:41→19:30)
[2018-08-15] MEDS ORDERED: Magnesium Citrate Liq 300 ML Bottle PO ONE (11:43)
--- NOTE | 2018-08-15 11:50 | P.PN ---
Subjective Interval history: Right lower extremity weakness without any numbness August 14, 2018-patient seen and examined, only complaints of right was 20 weakness denies any significant pain or numbness. No acute event overnight. August 15, 2018-patient seen and examined, still with right lower extremity weakness, constipation times 3 days. Was seen by urology this morning. Physical Exam Vital signs: Vital Signs 08/14/18 12:00 08/14/18 16:00 08/14/18 20:00 Temperature 97.4 F L 98.9 F Pulse Rate 79 93 H 74 Respiratory Rate 18 18 17 Blood Pressure 138/80 146/69 H 142/65 H Pulse Oximetry 97 93 L 98 08/15/18 00:00 08/15/18 04:00 08/15/18 08:00 Temperature 98.5 F 98.1 F 97.6 F Pulse Rate 68 52 L 71 Respiratory Rate 17 17 16 Blood Pressure 129/69 144/69 H 140/69 Pulse Oximetry 97 96 98 Intake & Output 08/14/18 08/15/18 08/15/18 18:59 06:59 18:59 Intake Total 1150 / 1150 1000 / 1000 1000 / 1000 Output Total 2049 1750 / 1750 Balance -900 / -900 -750 / -750 1000 / 1000 Intake: IV 500 / 500 1000 / 1000 1000 / 1000 NS Inj 1,000 ML @ 100 mls/hr IV 500 / 500 1000 / 1000 1000 / 1000 .CONT .Q10H [facility] Rx#:[id number] Oral 650 / 650 Output: Urine 2049 1750 / 1750 Narrative: GENERAL: NAD SKIN: Warm and dry. HEAD: Atraumatic. Normocephalic. EYES: Pupils equal and round. No scleral icterus. No injection or drainage. ENT: No nasal bleeding or discharge. Mucous membranes pink and moist. NECK: Trachea midline. No JVD. CARDIOVASCULAR: Regular rate and rhythm. RESPIRATORY: No accessory muscle use. Clear to auscultation. Breath sounds equal bilaterally. GASTROINTESTINAL: Abdomen soft, non-tender, nondistended. Hepatic and splenic margins not palpable. MUSCULOSKELETAL: Extremities without clubbing, cyanosis, or edema. No obvious deformities. NEUROLOGICAL: Awake and alert. No obvious cranial nerve deficits. Motor grossly within normal limits. Four out of 5 muscle strength in the right leg PSYCHIATRIC: Appropriate mood and affect; insight and judgment normal. - Urinary Catheter Management Indwelling Urethral Catheter Cath placed during this visit: yes Reason for continuing: Acute urinary retention Insertion date: 08/14/18 Insertion time: 07:02 Results - Labs CBC & Chem 7: 08/15/18 04:03 08/15/18 04:03 Laboratory Results - last 24 hr 08/14/18 08/14/18 08/14/18 12:12 16:59 20:30 WBC RBC Hgb Hct MCV MCH MCHC RDW Plt Count MPV Neut % (Auto) Lymph % (Auto) [place] % (Auto) Eos % (Auto) Baso % (Auto) Neut # (Auto) Lymph # (Auto) [place] # (Auto) Eos # (Auto) Baso # (Auto) WBC Differential Differential Comment Sodium Potassium Chloride Carbon Dioxide Anion Gap BUN Creatinine Estimated GFR POC Glucose 158 H 215 H 227 H Random Glucose Calcium 08/15/18 08/15/18 08/15/18 04:03 04:03 08:39 WBC 9.9 RBC 4.12 L Hgb 12.4 L D Hct 36.8 L MCV 89.2 MCH 30.1 MCHC 33.7 RDW 14.0 Plt Count 128 L MPV 11.0 Neut % (Auto) 88.4 H Lymph % (Auto) 6.7 L [place] % (Auto) 4.7 Eos % (Auto) 0.0 Baso % (Auto) 0.2 Neut # (Auto) 8.8 H Lymph # (Auto) 0.7 L [place] # (Auto) 0.5 Eos # (Auto) 0.0 Baso # (Auto) 0.0 WBC Differential . Differential Comment Auto diff final Sodium 144 Potassium 4.7 Chloride 109 H Carbon Dioxide 25.2 Anion Gap 10 BUN 34 H Creatinine 1.77 H Estimated GFR 45 L POC Glucose 141 H Random Glucose 168 H Calcium 8.5 D Assessment and Plan - Assessment (1) Weakness of right lower extremity Code(s): R29.898 - Other symptoms and signs involving the musculoskeletal system Status: Acute - Plan 82-year-old man with 1. Right hip pain/weakness MRI of the lumbar spine significant for multilevel degenerative spondylosis of the lumbar spine with moderate to severe right lateral foraminal narrowing secondary to disc bulge d/c Decadron Neurosurgery consulted, appreciate assistance Appreciate input from neurology PT to treat and eval 2. Diabetes mellitus Sliding scale insulin Monitor blood glucose 3. Acute kidney injury Likely chronic component Monitor renal function Holding home hydrochlorothiazide Continue with IV fluid hydration 4. Hypertension Continue home medications 5. Constipation Will give magnesium citrate x1 now 6. Urinary retention Appreciate input from urology, voiding trial in 3-4 days. Flomax 0.4 mg at bedtime
--- NOTE | 2018-08-15 13:35 | P.PNNS ---
Subjective Interval history: no changes overnight, continues to report of weakness right leg, raising right leg and kicking leg forward. has some mild right side hip pain but denies low back pain, neck pain, thoracic pain. denies radiating pain to legs, numbness or tingling. denies upper extremity symptoms. <Ivon Glynn - Last Filed: 08/15/18 15:34> Physical Exam Vital signs: Vital Signs 08/14/18 16:00 08/14/18 20:00 08/15/18 00:00 Temperature 97.4 F L 98.9 F 98.5 F Pulse Rate 93 H 74 68 Respiratory Rate 18 17 17 Blood Pressure 146/69 H 142/65 H 129/69 Pulse Oximetry 93 L 98 97 08/15/18 04:00 08/15/18 08:00 08/15/18 12:00 Temperature 98.1 F 97.6 F 98.3 F Pulse Rate 52 L 71 61 Respiratory Rate 17 16 18 Blood Pressure 144/69 H 140/69 124/62 Pulse Oximetry 96 98 95 Intake & Output 08/14/18 08/15/18 08/15/18 18:59 06:59 18:59 Intake Total 1150 / 1150 1000 / 1000 1000 / 1000 Output Total 2049 / 2049 1750 / 1750 850 / 850 Balance -900 / -900 -750 / -750 150 / 150 Intake: IV 500 / 500 1000 / 1000 1000 / 1000 NS Inj 1,000 ML @ 100 mls/hr IV 500 / 500 1000 / 1000 1000 / 1000 .CONT .Q10H [facility] Rx#:[id number] Oral 650 / 650 Output: Urine 2049 1750 / 1750 850 / 850 Narrative: A&O x 3 CN II-XII intact Motor 5/5 UE and LLE. RLE: ip 2, quads 3-4, remainder 5 (hamstrings, and sciatic-TA/gas/EHL), Intact sensation throughout DTRs: 1+ knees and ankles Plantars flexors bilaterally No ankle clonus - Urinary Catheter Management Indwelling Urethral Catheter Cath placed during this visit: yes Reason for continuing: Acute urinary retention Insertion date: 08/14/18 Insertion time: 07:02 <Ivon Glynn - Last Filed: 08/15/18 15:34> Narrative: The patient is alert, awake. Comfortable, in no acute distress. Speech is fluent. Cranial nerve examination: pupils to be equal, round and reactive to light. Extra-ocular movements are intact. Facial motor and sensory function are normal and symmetrical. Gross hearing appears intact. Sternocleidomastoid and trapezius muscles are symmetrical. Other cranial nerves are intact. Neck is soft and supple with a good range of motion without pain. Muscle strength is normal in all muscle groups of both upper extremities. Iliopsoas and quadriceps 3-4, remainder 5 (hamstrings, and sciatic-TA/gas/EHL Sensory examination is intact to light touch and pin prick in both the upper and lower extremities. Deep tendon reflexes are symmetrical in both upper and lower extremities. There is a bilateral plantar flexion response. Cerebellar examination is unremarkable, without deficits. Lungs are clear Heart regular rhythm is regular rate Skin warm and dry - Urinary Catheter Management Indwelling Urethral Catheter Cath placed during this visit: no <Nicola Guerra - Last Filed: 08/19/18 14:45> Assessment and Plan - Plan 82yoM with 3 week onset of insidious proximal right leg weakness, some right lateral flank pain, negative Straight leg raise, acute kidney injury (Cr 2.2 without previous history), history of DM (but reduced weight from 250 to 170 lbs and an on no meds currently). The patient is not presenting like a classic far lateral disc herniation. He has no real back pain, negative SLR, is not uncomfortable. Differential includes right femoral neuropathy (would recommend EMG/NCS at 3-4 weeks after sx onset). Can occur in diabetics (diabetic amyotrophy, but usually uncontrolled). He is on *plavix* for ?reason. Plan: MRI L spine reviewed by Dr. Guerra, Dr. Guerra recommends obtaining MRI C/T spine Neurology consultation for evaluation, may need EMG/NCV of RLE can be done outpatient cont PT <Ivon Glynn - Last Filed: 08/15/18 15:34> - Plan Neuro: Continue neuro checks. Etiology of weakness not very clear. Recommend an outpatient EMG, it could be a neuropathy Pulmonary: aggressive pulmonary toilette, nasotracheal suction, and breathing treatments with nebulizers. Daily PT and OT Renal: Continue to monitor closely urine output, BUN and creatinine Endocrine: Continue to Monitor serial Acu checks and SSI as needed in detail ID continue to monitor for signs of infection Continue Protonix for stress ulcer prophylaxis Continue Aj hose and SCD's for DVT prophylaxis Further recommendations will be provided depending on the patient's clinical evaluation and follow up studies. The exam, history, and the medical decision-making described in the above note were completed with the assistance of the mid-level provider. I reviewed and agree with the findings presented. I attest that I had a [id number] encounter with the patient on the same day, and personally performed and documented my assessment and findings in the medical record. <Nicola Guerra - Last Filed: 08/19/18 14:45>
--- NOTE | 2018-08-15 15:16 | MR ---
EXAM DATE: 08/15/2018 2:28 PM EDT AGE/SEX: 82 years / Male INDICATIONS: Gait disorder. Weakness in right leg. CLINICAL DATA: This is the patient's subsequent encounter. Patient reports that signs and symptoms h ave been present for 2 days and indicates a pain score of 0/10. MEDICAL/SURGICAL HISTORY: Hypertension. Diabetes mellitus type II. . Scrotum. COMPARISON: [facility] – [place], MR CERVICAL SPINE W/O CONTRAST, 08/15/2018. . TECHNIQUE: Multiplanar, multisequence MRI of the thoracic spine was performed. FINDINGS: Vertebrae: Marrow signal is mildly inhomogeneous. There are degenerative changes from T6 through T10 without thoracic spinal stenosis. The signal intensity in cord is normal. There is no evidence for cord syrinx. Alignment: Normal. Cord: Normal position and configuration. T1-T2: The thecal sac has a normal diameter. No evidence of disc bulge or protrusion. T2-T3: The thecal sac has a normal diameter. No evidence of disc bulge or protrusion. T3-T4: The thecal sac has a normal diameter. No evidence of disc bulge or protrusion. T4-T5: The thecal sac has a normal diameter. No evidence of disc bulge or protrusion. T5-T6: The thecal sac has a normal diameter. No evidence of disc bulge or protrusion. T6-T7: Mild interspace ridging without spinal stenosis. T7-T8: Mild interspace ridging without stenosis T8-T9: Mild interspace ridging without stenosis T9-T10: Mild interspace ridging with minimal neural foraminal encroachment T10-T11: Mild interspace ridging with minimal neural foraminal encroachment. T11-T12: The thecal sac has a normal diameter. No evidence of disc bulge or protrusion. T12-L1: Moderate facet disease on the left with mild bilateral neural foraminal encroachment. No spi nal stenosis. CONCLUSION: 1. Mild degenerative changes throughout the thoracic spinal stenosis 2. There is no cervical cord syrinx 3. I do not see an etiology for gait disorder. Electronically signed by: Buddy Dominguez MD 08/15/2018 3:14 PM EDT
--- NOTE | 2018-08-15 15:52 | MR ---
EXAM DATE: 08/15/2018 2:28 PM EDT AGE/SEX: 82 years / Male INDICATIONS: Gait disorder. Right leg weakness. CLINICAL DATA: This is the patient's subsequent encounter. Patient reports that signs and symptoms h ave been present for 1 day and indicates a pain score of 0/10. MEDICAL/SURGICAL HISTORY: Diabetes mellitus type II. Hypertension. . Scrotum surgery. COMPARISON: [facility] – [place], THORACIC SPINE W/O CONTRAST, 08/15/2018. . TECHNIQUE: Multiplanar, multisequence MRI examination of the cervical spine was performed without co ntrast. FINDINGS: Vertebrae: Normal vertebral body height. Homogeneous marrow signal. Alignment: Reversal of the normal cervical lordosis. Cord: Normal configuration and signal. Post Fossa: The cerebellar tonsils are normal in position. C2-C3: Minimal degenerative changes causing mild effacement of the thecal sac. There is no evidence of disc herniation or spinal canal stenosis. The neural foramina are patent bilaterally. C3-C4: Mild uncinate ridging with minimal left-sided neural foraminal encroachment. No significant s ghada stenosis. C4-C5: Generalized disc bulging with central to left-sided protrusion impinging on the anterior thec al space and deforming the cord. Significant left-sided neural foraminal encroachment. Spinal stenosi s is severe. There is no increased signal in the cord. C5-C6: Moderate uncinate ridging present all but obliterating the anterior thecal space with bilater al neural foraminal encroachment. Spinal stenosis is moderate. C6-C7: Generalized disc bulging evident causing some flattening the anterior thecal space. Thecal sp clarissa is effaced but not obliterated. There is significant left-sided neural foraminal encroachment. C7-T1: Mild disc bulging with minimal bilateral neural foraminal encroachment. No significant spinal stenosis. T1-T2: Mild disc bulging without significant spinal stenosis. CONCLUSION: 1. Degenerative changes in the cervical spine. Spinal stenosis is radiographically significant from C4 to C7. Electronically signed by: Buddy Dominguez MD 08/15/2018 3:51 PM EDT
--- NOTE | 2018-08-15 20:42 | MB ---
cc: Colt Gasca MD, PhD DATE: 08/15/2018 REASON FOR CONSULTATION: Lower extremity weakness. HISTORY OF PRESENT ILLNESS: This is a very pleasant 82-year-old man who noted a fairly gradual onset of right leg weakness about 2-3 weeks ago. He first noticed this while he was mowing the lawn. The leg began to become weak, but then progressed over several days and ultimately the proximal leg. He has no numbness. He does have some mild back pain, but this is minimal. It is more to the side and the lateral aspect. PAST MEDICAL HISTORY: Remarkable for diabetes, hypertension, hyperlipidemia, benign prostatic hypertrophy, history of scrotal mass, hyperlipidemia. MEDICATIONS: 1. Tylenol p.r.n. 2. Cozaar 100 mg daily. 3. Lopressor 12.5 mg b.i.d. 4. Zofran p.r.n. 5. Senokot. 6. Aldactone. NEUROLOGICAL EXAMINATION: VITAL SIGNS: Blood pressure is 124/60, pulse 61, respirations 18, temperature 98 degrees. NEUROLOGIC: Higher functions are normal. Cranial nerves 2-12 are normal. Motor exam: He has got normal strength and tone of all major groups in both upper extremities. He has no drift. Fine motor skills are normal. Muscle tone is normal. Lower extremities: He is weak in the right iliopsoas muscle rated at 4-/5 right quadriceps is weak at 3/5. Right hamstring is strong 5/5, right tibialis anterior 5/5, right EHL and EDB 5/5, right gastrocnemius soleus 5/5. He has normal strength in the left leg. Sensory exam is intact. Reflexes are 1+ biceps, triceps and brachioradialis, symmetric 1+ left patellar, absent to trace right patella. Ankle reflexes are trace bilaterally. There is no Babinski sign present. IMAGING STUDY: Lumbar spine MRI is reviewed. He has diffuse degenerative disk disease at L1-L2 with facet arthropathy, but no significant stenosis. The neural foramen are normal. L2-L3 shows diffuse disk bulge, there is mild stenosis. There is right lateral recess stenosis as well at this level L3-L4, diffuse disk bulging with bilateral facet arthropathy. There was right lateral recess stenosis as well as left lateral recess stenosis. At L4-L5, there is disk bulging with right foraminal stenosis, minimal left foraminal stenosis. L5-S1 shows mild disk bulging. Minimal neural foraminal encroachment is identified. The patient also underwent an MRI scan of the cervical spine, which is also reviewed. C2-C3 minimal degenerative disk disease, but no stenosis is identified. C3-C4 serves shows mild degenerative disk disease. No significant stenosis. C4-C5 does show significant stenosis with cord involvement. There is moderate stenosis at C5-C6, C6-C7 shows degenerative disk bulging. There is left-sided neural foraminal encroachment at C7-T1. There is minimal disk bulging. No stenosis. T1-T12 is normal. Thoracic spine MRI is also reviewed. Mild degenerative disk disease is seen. No significant stenosis identified. LABORATORY DATA: White count 11,000, hemoglobin 14.8, hematocrit 45.5%, platelet count 141,000. Sodium is 144, potassium 4.7, chloride 109, CO2 is 25.7. The BUN is 34, creatinine 1.77, GFR is 45, glucose 227 and calcium 8.5. Urinalysis the pH is 5, specific gravity 1.011, protein is 30, glucose greater than 500, ketones 20, large amount of occult blood identified. RBC, 96 WBC 1. 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 I do not feel this is related to the lumbar stenosis seen at L2 or L3 given the distribution as well as the absence of back pain. Furthermore, the fairly gradual onset is more consistent with amyotrophy. He does have cervical stenosis as well, but I cannot find any definite myelopathic features on the exam. RECOMMENDATION: Would recommend as an outpatient EMG/nerve conduction study of the right lower extremity. Also recommend physical therapy consultation. We will defer to neurosurgical recommendation regarding the cervical spondylosis. I do not think this is causing the right leg weakness. This is mainly a lower motor neuron problem. 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 Thank you for asking me the see this nice man in consultation. Colt Gasca MD, PhD KENAN/ct , 07:44 PM , 07:53 PM
[2018-08-16] MEDS: Sod Chloride 0.9% Inj 1,000 ML IV.CONT SCH ×2 (05:33→14:51)
[2018-08-16] MEDS: Insulin NovoLOG Aspart Correctional Sugar Inj SQ SCH ×2 (08:45→12:04)
[2018-08-16] MEDS: Metoprolol Tartrate 25 MG Tablet PO SCH (09:03)
[2018-08-16] MEDS: Spironolactone 25 MG Tablet PO SCH (09:04)
[2018-08-16 12:18] VITALS: RESP 23; O2SAT 98
--- NOTE | 2018-08-16 13:23 | P.DCO ---
- Physical Therapy Order: Evaluate and treat, Improve ambulation, Strength and gait training - Occupational Therapy Order: Evaluate and treat, Improve ADL, Gross motor coordination, Fine motor coordination - Home Health Nursing Order: Medical education, Signs/symptoms of disease process, Medication education-adverse effect, Nursing assessment with vital signs - Case Management Consult No - Certification I have seen patient Abdulkadir Elizabeth on 08/16/18. My clinical findings support the need for the requested home health care services because: Limited mobility due to disease progression, Deconditioned with increased weakness, Limited ability to care for self, Need for psychosocial assistance, Impaired cognition/judgement, High risk of falls, Infection with risk of complications I certify that my clinical findings support that this patient is homebound because: Unsteady gait/balance, Unsafe to leave home unassisted, Non-ambulatory: confined to bed or chair, Unable to use public transportation
--- NOTE | 2018-08-16 13:33 | P.DS ---
Date of admission: 08/14/18 00:51 Primary care physician: UNKNOWN Brief History from admission: 82-year-old male with a past medical history significant for diabetes mellitus, hypertension, hyperlipidemia and BPH presents the emergency department for the evaluation of right hip pain and right lower extremity weakness. The patient reports that for approximately 3-1/2 weeks he has had right hip pain that has consistently worsened. He reports he has had increasing right lower extremity weakness to the point where he can no longer lift his leg off the bed times 1 week. He was advised by 1 of his physicians at the [place] to come to the emergency department for further evaluation. He denies any chest pain or shortness of breath. No abdominal pain. No nausea/vomiting/diarrhea. Positive constipation. No fever/chills. No loss of bowel or bladder continence. DS: Medications - Discharge Medications Prescriptions: metformin 500 mg PO BID #60 tab tamsulosin 0.4 mg PO DAILY #30 cap DS: Summary Hospital Course: 82-year-old male with a past medical history significant for diabetes mellitus, hypertension, hyperlipidemia and BPH presents the emergency department for the evaluation of right hip pain and right lower extremity weakness. MRI read as significant right L2/3 far lateral disc herniation. Lumbar MRI - he has diffuse degenerative disk disease at L1-L2 with facet arthropathy, but no significant stenosis. The neural foramen are normal. L2-L3 shows diffuse disk bulge, there is mild stenosis. Cervical spine MRI shows degenerative changes in the cervical spine. Spinal stenosis is significant from C4-C7. I discussed with neurosurgery on 08/16/2018 regarding cervical spinal stenosis. Patient is not having any symptoms in the upper extremities. Neurosurgery recommended outpatient follow-up after right lower extremity nerve conduction study is done. Neurosurgery cleared for discharge. I discussed with patient regarding rehab versus home with home health. He opted for home with home health. Physical therapy also recommended home with home health. - Time Spent with Patient Total time spent providing and/or coordinating discharge services: Greater than 30 minutes - Quality: VTE Deep Vein Thrombosis/Pulmonary Embolism Present on Admission: No Exam Vital signs: Vital Signs 08/15/18 16:00 08/15/18 19:41 08/15/18 20:00 Temperature 98.0 F 98.9 F Pulse Rate 66 60 65 Respiratory Rate 18 17 Blood Pressure 136/73 133/70 Pulse Oximetry 98 97 08/15/18 23:52 08/16/18 08:00 08/16/18 12:00 Temperature 97.7 F 97.5 F L 97.9 F Pulse Rate 59 L 53 L 64 Respiratory Rate 17 24 23 Blood Pressure 140/77 151/72 H 141/80 H Pulse Oximetry 96 99 98 Intake & Output 08/15/18 08/16/18 08/16/18 18:59 06:59 18:59 Intake Total 1960 / 1960 1480 / 1480 Output Total 1450 / 1450 2600 / 2600 Balance 510 / 510 -1120 / -1120 Weight 170 kg Intake: IV 1000 / 1000 1000 / 1000 NS Inj 1,000 ML @ 100 mls/hr IV 1000 / 1000 1000 / 1000 .CONT .Q10H TERESA Rx#:[id number] Oral 960 / 960 480 / 480 Output: Urine 1450 / 1450 Urine Amount (Catheter) 2600 / 2600 Indwelling Urethral Catheter 2600 / 2600 Other: # Bowel Movements 0 Narrative: GENERAL: Alert, oriented x3, NAD. SKIN: Warm and dry. HEAD: Normocephalic. EYES: No scleral icterus. No injection or drainage. NECK: Supple, trachea midline. No JVD or lymphadenopathy. CARDIOVASCULAR: Regular rate and rhythm without murmurs, gallops, or rubs. RESPIRATORY: Breath sounds equal bilaterally. No accessory muscle use. GASTROINTESTINAL: Abdomen soft, non-tender, nondistended. MUSCULOSKELETAL: No cyanosis, or edema. Right lower extremity weakness 3 out of 5. BACK: Nontender without obvious deformity. No CVA tenderness. Results Procedures completed during hospitalization: None Labs on day of discharge: Labs from last 24 hours 08/16/18 08/16/18 08/15/18 12:00 08:21 20:01 POC Glucose 174 H 122 H 282 H 08/15/18 18:06 POC Glucose 132 H - Impressions ITS Impressions Lumbar Spine MRI 08/13/18 21:58 CONCLUSION: 1. 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 2. Please see above for detailed description of each level. Hip X-Ray 08/14/18 00:00 CONCLUSION: Minimal degenerative change. Cervical Spine MRI 08/15/18 00:00 CONCLUSION: 1. Degenerative changes in the cervical spine. Spinal stenosis is radiographically significant from C4 to C7. Thoracic Spine MRI 08/15/18 00:00 CONCLUSION: 1. Mild degenerative changes throughout the thoracic spinal stenosis 2. There is no cervical cord syrinx 3. I do not see an etiology for gait disorder. Discharge Plan - Discharge Disposition Patient Disposition: Disch W/Home Health Service - Discharge Condition Condition: Good - Discharge Order Discharge Orders: Discharge Order (Routine); Ordered 08/16/18 Ordered By: Joe Blue - Discharge Details Anticipated Discharge Date: 08/16/18 Discharge Comment: Patient needs Right lower extremity EMG/Nerve conduction study. Then follow up with Neurology, Neurosurgery. - Physicians Team Primary Care Provider: UNKNOWN, Attending Provider: Joe Blue Other Providers: Peter Sarkar MD ; Emilee Isaacs MD ; Colt Gasca MD, PhD ; Mauricio Sandhu DO
[2018-08-16 16:59] VITALS: BP 159/77; PULSE 66; TEMP 97.6
== END 2018-08-16 17:51 | disposition home health service (06) ==
LOC: NEPD 19:04 → NEDA 08-14 00:51 → N06 08-14 03:06
PROVIDERS: ADMIT Hospitalist; ATTEND Hospitalist